=== PATIENT | male | born 1970 | race Caucasian/White ===

== ENCOUNTER 2017-07-21 07:19 | Emergency (ER) | payer SELFPAY ==
[2017-07-21] MEDS ORDERED: Sodium Chloride 0.9% 10 ML Syringe FLUSH PRN (07:28)
[2017-07-21] MEDS ORDERED: Sodium Chloride 0.9% 1,000 ML IV ONE (07:29)
[2017-07-21] MEDS ORDERED: Ketorolac 30 MG/ML SDV IVPUSH ONE (07:30)
[2017-07-21] MEDS ORDERED: HYDROmorphone 1 MG/ML Syringe IVPUSH ONE ×2 (07:30→07:47)
[2017-07-21] MEDS ORDERED: HYDROmorphone 1 MG/ML Syringe IM ONE (07:34)
[2017-07-21 08:18] LABS: CHLORIDE,CL 105 mmol/L (98-107); SODIUM,NA 141 mmol/L (136-145)
[2017-07-21] MEDS ORDERED: Tamsulosin 0.4 MG Cap.ER PO ONE (09:01)
[2017-07-21 17:53] VITALS: BP 139/95
--- NOTE | 2017-07-21 18:55 | ER ---
Date of Service: 07/21/2017 SUBJECTIVE: Conrad presents to the emergency room with severe acute onset of testicular pain. The patient states that he has a history of kidney stones and states that this is similar discomfort to what he has experienced when he has had a kidney stone. The patient states that he is not experiencing any fever or chills. He denies any vomiting, but is nauseated. He denies hematuria or pyuria and states that he is not experiencing any flank or abdominal pain. PAST MEDICAL HISTORY: Previous IV drug user. MEDICATIONS: None. ALLERGIES: NKDA. REVIEW OF SYSTEMS: Denies any fever or chills, headache, chest pain, shortness of breath, abdominal pain, or flank pain. His only complaint is again that of testicular pain. PHYSICAL EXAMINATION: General: This is a 47-year-old male patient, who is in severe distress. Vital Signs: Initial vital signs 174/114, was rechecked and was found to be approximately 140/90; heart rate initially was 100 and after he was medicated, this decreased to 65; temperature is 35.5, respiratory rate is 20, and O2 saturation 100%. Skin: Warm, pink, and dry. HEENT. Head is normocephalic, atraumatic. Mouth, oral mucosa is moist. Lungs: Clear to auscultation. Heart: Regular rate and rhythm. Abdomen: Soft and nontender. There are no masses noted. There is no hepatosplenomegaly noted. No CVA tenderness on percussion or palpation. Extremities: Without edema. Neurologic: The patient is alert and oriented and answers all questions appropriately. His speech is fluent. Psychiatric: The patient is extremely anxious tearful, swearing, and complaining of severe pain. LABORATORY DATA: WBC is 14.6, hemoglobin is 13.6, platelets are 273. PT coag is 10.4, INR is 1.0. Chemistry; sodium is 141, potassium is 3.5, chloride is 105, bicarbonate is 27, BUN is 21, creatinine is 1.3. Creatinine clearance is 71, GFR is 59, glucose is 120, calcium is 8.8, corrected calcium is 8.8, total bilirubin is 0.5, AST is 17, ALT is 25, alkaline phosphatase is 49. C-reactive protein is less than 0.2, total protein is 7.4, albumin is 3.9. CT scan of the patient's abdomen and pelvis without contrast was obtained. He did have evidence of 5.2 mm ureteral stone at the right UVJ with moderate right- sided hydronephrosis. He also did have punctate nonobstructive stone in the upper pole of the left kidney. No other obvious pathologic findings noted on this unenhanced study. EMERGENCY ROOM COURSE: IV access was established. He was given a total of 1 L of normal saline. He was given Dilaudid 1 mg IV, Zofran 4 mg IV, and Toradol 30 mg IV. He was observed over an hour and stated that his pain had almost completely resolved. He remained stable in my care in the emergency room. ASSESSMENT: A 5.2 mm ureteral stone with moderate hydronephrosis. PLAN: I did speak with the urologist at [facility] in [place]. He advised attempting to have the patient pass the stone on his own. I did start him on Flomax 0.4 mg once daily and Mulino 10/325 with instructions to take 1 to 2 every 4 to 6 hours as needed for pain. He was given his first dose of Flomax here in the ER. I also advised him to drink plenty of fluids. He was given a urine strainer, with instructions to strain his urine and collect any stones and bring to the clinic for analysis. If his pain is not palliated to an adequate degree with oral pain medication, he should either return to the emergency room for parenteral pain control or drive to [facility] in [place], to be treated there and also to be seen by Urology. Again, encouraged to drink plenty of fluids. In addition to the Mulino, he should take ibuprofen 600 mg every 6 hours. All questions were answered. MWK: 07/21/2017 13:52:48 MODL: 07/21/2017 18:46:10 /[id number]
== END 2017-07-21 11:05 | disposition home or self-care (01) ==
LOC: VM.ED 07:19
DX: N13.2 Hydronephrosis with renal and ureteral calculous obstruction (principal); Z87.442 Personal history of urinary calculi
CPT/HCPCS: 36415; 74176; 80053; 85025; 85610; 86140; 96361; 96374; 96375; 99284; A9270; J1170; J1885; J7030